=== PATIENT | female | born 1975 | race Caucasian/White ===

== ENCOUNTER 2019-10-16 00:24 | Inpatient (IN) | payer OTHER ==
[2019-10-16] VITALS (13 sets, daily range): BP systolic 105–148; BP diastolic 56–72
[~2019-10-16] VITALS: Ht 157.5 cm; Wt 71.7 kg
--- NOTE | ~2019-10-16 | HC ---
[facility] [place] [address] CONSULTATION Name: NARINDER COX Room #: 248-P ADM IN M.R.#: [id number] Admission: 10/16/19 Attend Phys: Justin Jean MD Discharge: Date of : 73 Report #: [id number] THIS REPORT FOR: cc: [facility] - Clinic physician unknown [facility] - Clinic physician unknown Irwin Jacobs MD ~ CC: [facility] unknown Justin Jean DATE OF SERVICE: 10/16/2019 HISTORY OF PRESENT ILLNESS: A 44-year-old female patient who is unable to provide any history at all. I reviewed all the records. I talked to Dr. Jean and I understand from the record, the patient was having flu-like symptoms, but the says that she was not having any flu-like symptoms before she started this diet. She always drinks a lot of fluid to flush out toxin from her body as per history and with this diet she developed multiple symptoms of nausea, vomiting, diarrhea and had a seizure. She was brought here and she is markedly hyponatremic. How long she has been like this is not clear. She had some fatigue, which is going on for some time. Here, her test was negative and CT scan was mostly unremarkable. REVIEW OF SYSTEMS: Positive for severe hyponatremia. She did get some fentanyl. She also got some Ativan. So this morning, she is pretty drowsy. PAST MEDICAL HISTORY: Negative for seizure. FAMILY HISTORY: Negative for any seizures. SOCIAL HISTORY: She does not drink any alcohol or smoke. PHYSICAL EXAMINATION: Pretty limited. She has no verbal output. She does not follow any commands. She does not let me do the fundus examination. She moves all 4 extremities. She does not appear to be in respiratory distress. Cardiac examinations appear unremarkable. LABORATORY DATA: White count was 16.6, but now it has increased to 21.2. Sodium is still 114, calcium is 7.3. I ordered magnesium, which is pending. IMPRESSION: This patient's symptoms are most likely related to hyponatremia as well as multiple other electrolyte abnormalities including hypocalcemia. That is being addressed by Renal and admitting doctor. Her nutritional status is poor. She also has been repeatedly vomiting. That can lead to impaired thiamine utilizations. If it does not interfere with her fluid management, I asked the nurses to check with renal. We can give her a banana bag that we will give her some nutrition and additional dose of thiamine, which sometime is [facility] [address] [place] [address] CONSULTATION Name: NARINDER COX Room #: 248-P ADM IN [facility]#: [id number] Admission: 10/16/19 Attend Phys: Justin Jean MD Discharge: Date of : 73 Report #: [id number] required in the patient who has repeated nausea, vomiting. I do not think we need to do a spinal tap at this moment because she will have some edema from the hyponatremia and it has increased chances of herniation and the chances of [employer] infection is somewhat low. Her white count has increased after she has been here. Initial white count may be secondary to seizure, but increasing white count is worrisome and the possibility of further infection including aspiration pneumonia need to be considered in this patient. I talked to Dr. Jean and we will put an ID consult to evaluate that. We will see their opinion. About 50 minutes of time was spent taking care of this patient today and that included reviewing her record, her imaging studies and her EEG and talking to her as the patient is unable to talk and other health pet care associate. By: [id number] Irwin Jacobs MD /nt
--- NOTE | ~2019-10-16 | EEG ---
[facility] [place] [address] ELECTROENCEPHALOGRAM Name: NARINDER COX Room #: 248-P ADM IN M.R.#: [id number] Admission: 10/16/19 Attend Phys: Justin Jean MD Discharge: Date of : 73 Report #: [id number] THIS REPORT FOR: //name// CC: FAM unknown Justin Jean DATE OF SERVICE: 10/16/2019 This patient is being evaluated for altered mental status. EEG was done by placing the electrode by standard 10-20 system of electrode placement. Both referential and sequential montages were used for recording. Background activity in this patient's EEG is about 7 Hz and 30 microvolt. Photic stimulation is unremarkable. No active seizure activity was noticed. EEG is intermixed with slowing on both side. IMPRESSION: This is an abnormal EEG because it is disorganized and poorly formed on both side. That is a nonspecific abnormality, which can occur with dementia, encephalopathy, effect of psychotropic medication, etc. Clinical correlation is recommended. By: [id number] Irwin Jacobs MD /nt
[2019-10-16 02:03] LABS: URINE BILIRUBIN NEGATIVE (Negative); URINE BLOOD NEGATIVE (Negative); URINE CLARITY CLEAR; URINE COLOR YELLOW; URINE GLUCOSE-RANDOM* NEGATIVE (Negative); URINE KETONES 1+ (Negative); URINE LEUKOCYTES-REFLEX NEGATIVE (Negative); URINE NITRITE-REFLEX NEGATIVE (Negative); URINE PROTEIN (DIPSTICK) NEGATIVE (Negative); URINE SPECIFIC GRAVITY >= 1.030 (1.005-1.035); URINE UROBILINOGEN 0.2 E.U./dl (0.2-1.0)
[2019-10-16 02:09] LABS: ABSOLUTE NEUTROPHILS 14.4 thou/uL (1.4-8.2); BASOPHILS 0.1 % (0.0-2.0); HEMATOCRIT 37.6 % (37.0-47.0); HEMOGLOBIN 12.7 gm/dL (12.0-15.0); LYMPHOCYTES 8.8 % (24.0-44.0); MCH 28.7 pg (26.0-34.0); MCHC 33.9 g/dL (28.0-37.0); MCV 84.8 fL (80.0-100.0); MONOCYTES 4.3 % (1.0-8.0); PLATELET COUNT 393 thou/uL (150-400); POLYS 86.8 % (36.0-66.0); RBC 4.43 mil/uL (4.20-5.00); RDW 12.7 % (10.5-14.5); WBC 16.6 thou/uL (4.0-11.0)
[2019-10-16 02:18] LABS: ALBUMIN 3.7 g/dL (3.4-5.0); AMP/METHAMP Negative (Negative); BARBITURATES Negative (Negative); BENZODIAZEPINES Negative (Negative); CALCIUM 8.1 mg/dL (8.5-10.1); COCAINE Negative (Negative); CREATININE 0.9 mg/dL (0.6-1.0); DIRECT BILIRUBIN 0.1 mg/dL (<0.1-0.2); METHADONE Negative (Negative); OPIATES Negative (Negative); PCP Negative (Negative); POTASSIUM 3.4 mmol/L (3.5-5.1); TOTAL BILIRUBIN 0.6 mg/dL (0.2-1.0); TOTAL PROTEIN 7.6 g/dL (6.4-8.2)
[2019-10-16] MEDS ORDERED: NORG-EE 0.18-01 EACH PO (04:18)
[2019-10-16 05:18] LABS: CALCIUM 6.9 mg/dL (8.5-10.1); CREATININE 0.7 mg/dL (0.6-1.0)
[2019-10-16 05:38] LABS: FOLIC ACID 16.8 ng/mL (8.6-58.9); TSH 0.976 uIU/mL (0.358-3.740)
[2019-10-16 06:49] LABS: URINE CREATININE-RANDOM* 58.2 mg/dL
[2019-10-16 08:31] LABS: HEMATOCRIT 33.6 % (37.0-47.0); HEMOGLOBIN 11.7 gm/dL (12.0-15.0); MCHC 34.7 g/dL (28.0-37.0); MCV 83.6 fL (80.0-100.0); RBC 4.02 mil/uL (4.20-5.00); RDW 12.8 % (10.5-14.5); WBC 21.2 thou/uL (4.0-11.0)
[2019-10-16 08:38] LABS: CALCIUM 7.3 mg/dL (8.5-10.1); CREATININE 0.6 mg/dL (0.6-1.0); POTASSIUM 3.8 mmol/L (3.5-5.1)
--- NOTE | 2019-10-16 09:12 | EKG ---
[facility] [place] [address] ELECTROCARDIOGRAM REPORT Name: NARINDER COX Room #: 248-P ADM IN M.R.#: [id number] Admission: 10/16/19 Attend Phys: Justin Jean MD Discharge: Date of : 73 Report #: [id number] THIS REPORT FOR: cc: [facility] - Clinic physician unknown [facility] - Clinic physician unknown Adolfo Gallardo MD [facility] ~ THIS REPORT FOR: //name// [facility] ED Test Date: 2019-10-16 Test Time: 03:36:23 Pat Name: NARINDER COX Department: Room: 248 Gender: F Database Dba: RADHA : 1975 Requested By: Linda Boyer Order Number: [id number] MD: Adolfo Gallardo Measurements Intervals [place] Rate: 91 P: 71 NM: 158 QRS: 63 QRSD: 143 T: 54 QT: 354 QTc: 436 Interpretive Statements Sinus rhythm Poor R wave progression No previous ECG available for comparison Electronically Signed On 10-16-2019 9:12:13 CDT by Adolfo Gallardo [email or web address] <ELECTRONICALLY SIGNED> By: Adolfo Gallardo MD, [facility] 10/16/19911 [id number] Adolfo Gallardo MD, [facility] /EPI
--- NOTE | 2019-10-16 11:33 | NUR ---
RISK, BENEFITS, AND ALTERNATIVE TREATMENT DISCUSSED WITH THE PATIENT'S . TEACHING GIVEN RELATED TO POSSIBLE COMPLICATONS SUCH BLEEDING, INFECTION, CLOT, OR VESSEL PERFORATION. INSTRUCTION GIVEN RELATED TO CLABSI PREVENTION WITH LITERATURE PROVIDED. VOICES UNDERSTANDING AND GIVES VERBAL CONSENT. WRITTEN CONSENT OBTAINED. TIME OUT COMPLETED WITH DARIEL RN IN ICU ROOM 248. TRIPLE LUMEN PICC PLACED TO RUE BASILIC VEIN. ONE STICK AND NO COMPLICATIONS. PATIENT TOLERATED WELL. TIP OF PICC VERIFIED IN DISTAL SVC PER CHEST XRAY. DARIEL RN NOTIFIED OKAY TO USE TRIPLE LUMEN RUE PICC.
--- NOTE | 2019-10-16 13:35 | NUR ---
chart review. order for mri today. pt resting unable to visit with her. noted from chart pt spouse reports she is independent. she was doing a body cleanse. abnormal labs. endo, id and neuro consult.
[2019-10-16 15:10] LABS: CALCIUM 7.6 mg/dL (8.5-10.1); CREATININE 0.7 mg/dL (0.6-1.0); POTASSIUM 3.7 mmol/L (3.5-5.1)
[2019-10-16 16:53] LABS: CALCIUM 7.3 mg/dL (8.5-10.1); CREATININE 0.8 mg/dL (0.6-1.0); POTASSIUM 3.5 mmol/L (3.5-5.1)
--- NOTE | 2019-10-16 19:17 | NUR ---
ADMITTED PT AT 0800 FROM ED TO ICU. PT ASLEEP, OCCASIONALLY RESTLESS, RESPONDS TO PAINFUL STIMULI; VSS - BP 120s/60s, HR 80s, RR 16-20s, 02 SAT 98% ON RM AIR. AT THE BEDSIDE. DR. ALCOCER WITH NEPHROLOGY AT THE BEDSIDE PLAN TO START HYPERTONIC SALINE, AND MONITOR BMPs Q2 HRS. PATIENT TO MRI PER NEUROLOGY AT 1345; TOLERATED MRI FAIRLY.
[2019-10-16 20:40] LABS: CALCIUM 7.5 mg/dL (8.5-10.1); CREATININE 0.7 mg/dL (0.6-1.0); POTASSIUM 3.4 mmol/L (3.5-5.1)
[2019-10-17] VITALS (15 sets, daily range): BP systolic 116–149; BP diastolic 47–68
[2019-10-17 01:06] LABS: GLYCOHEMOGLOBIN (HGB A1C) 5.3 % (4.8-5.6)
[2019-10-17 05:38] LABS: HEMATOCRIT 34.7 % (37.0-47.0); HEMOGLOBIN 12.1 gm/dL (12.0-15.0); MCH 29.4 pg (26.0-34.0); MCHC 35.1 g/dL (28.0-37.0); MCV 83.9 fL (80.0-100.0); RBC 4.13 mil/uL (4.20-5.00); WBC 11.9 thou/uL (4.0-11.0)
[2019-10-17 05:45] LABS: APTT 27.5 Seconds (24.5-32.8); PROTIME 10.7 Seconds (9.3-11.4)
[2019-10-17 06:58] LABS: ALBUMIN 2.9 g/dL (3.4-5.0); CALCIUM 7.5 mg/dL (8.5-10.1); CREATININE 0.7 mg/dL (0.6-1.0); POTASSIUM 3.3 mmol/L (3.5-5.1); TOTAL BILIRUBIN 0.3 mg/dL (0.2-1.0)
--- NOTE | 2019-10-17 10:30 | NUR ---
pt possible having spinal tap today. cont on iv medication. covid pending. when medical stable, dc home with family. will cont following as needed for dc needs.
[2019-10-17 10:56] LABS: CALCIUM 7.5 mg/dL (8.5-10.1); CREATININE 0.6 mg/dL (0.6-1.0); POTASSIUM 3.2 mmol/L (3.5-5.1)
[2019-10-17 13:39] LABS: CALCIUM 7.1 mg/dL (8.5-10.1); CREATININE 0.6 mg/dL (0.6-1.0); POTASSIUM 3.1 mmol/L (3.5-5.1)
--- NOTE | 2019-10-17 13:48 | NUR ---
[facility] MD WILL [facility] ORDERS. REPEAT LAB IN 2 HOURS.
[2019-10-17 16:03] LABS: CSF GLUCOSE 72 mg/dL (40-70); CSF PROTEIN 33 mg/dL (15-45)
[2019-10-17 16:09] LABS: CSF RBC 28 /mm3; VOLUME 4.5 ml
[2019-10-17 16:11] LABS: CSF CLARITY HAZY; CSF COLOR COLORLESS
[2019-10-17 16:14] LABS: CSF WBC 66 /mm3 (0-10)
[2019-10-17 16:33] LABS: CALCIUM 7.2 mg/dL (8.5-10.1); CREATININE 0.5 mg/dL (0.6-1.0); POTASSIUM 3.3 mmol/L (3.5-5.1)
[2019-10-17 17:34] LABS: CSF POLYS 98 %
[2019-10-17 17:35] LABS: CSF LYMPHOCYTES 2 % (40-80)
--- NOTE | 2019-10-17 17:39 | NUR ---
SPOKE WITH DR ROTHMAN, REPORTED LAB. WILL MOVE 1800 LAB TO 1999 OTHERWISE NO OTHER CHANGES. GENERAL UPDATE GIVEN.
--- NOTE | 2019-10-17 20:55 | NUR ---
PT MOVING TOWARDS GOALS. NA STABLE AT 128. ALERT AND ORIENTED. FOLLOWS ALL COMMANDS. VSS.
[2019-10-17 22:06] LABS: HIV ANTIBODY Non Reactive (Non Reactive)
[2019-10-17 23:03] LABS: ALBUMIN 2.6 g/dL (3.4-5.0); CREATININE 0.5 mg/dL (0.6-1.0); PHOSPHORUS 1.2 mg/dL (2.5-4.9); POTASSIUM 3.5 mmol/L (3.5-5.1)
[2019-10-18] VITALS (9 sets, daily range): BP systolic 119–161; BP diastolic 50–87
[2019-10-18 05:54] LABS: ALBUMIN 2.7 g/dL (3.4-5.0); CALCIUM 7.7 mg/dL (8.5-10.1); CREATININE 0.6 mg/dL (0.6-1.0); PHOSPHORUS 1.5 mg/dL (2.5-4.9); POTASSIUM 3.4 mmol/L (3.5-5.1)
--- NOTE | 2019-10-18 07:08 | NUR ---
PT IS ALERT AND ORINETED TO PERSON AND PLACE. HAD TO EXPLAIN PURPOSE OF HOSPITALIZATION. LUNGS ARE CLEAR ON ROOM AIR. PEREZ TO DD WITH YELLOW URINE PRESENT. INFECTIOUS DISEASE SEEN PT THIS AM. NO SEIZURE ACTIVITY NOTED. NO EDEMA NOTED . GENERAL WEAKNESS AND TIRED NOTED WITH PT. WILL CONTINUE TO ASSESS AND MONITOR PER NURSING IN ICU A T THIS TIME.
[2019-10-18 10:42] LABS: ALBUMIN 2.8 g/dL (3.4-5.0); CALCIUM 7.6 mg/dL (8.5-10.1); CREATININE 0.6 mg/dL (0.6-1.0); PHOSPHORUS 1.7 mg/dL (2.5-4.9); POTASSIUM 3.3 mmol/L (3.5-5.1)
[2019-10-18 11:05] LABS: URINE BILIRUBIN NEGATIVE (Negative); URINE BLOOD 3+ (Negative); URINE CLARITY CLEAR; URINE COLOR YELLOW; URINE GLUCOSE-RANDOM* NEGATIVE (Negative); URINE KETONES 1+ (Negative); URINE LEUKOCYTES TRACE (Negative); URINE NITRITE NEGATIVE (Negative); URINE PROTEIN (DIPSTICK) 1+ (Negative); URINE SPECIFIC GRAVITY 1.025 (1.005-1.035); URINE UROBILINOGEN 0.2 E.U./dl (0.2-1.0)
[2019-10-18 11:16] LABS: BACTERIA 1-9 Few /HPF (None Seen); CASTS None Seen /LPF (None Seen); CRYSTALS None Seen /LPF (None Seen); SQUAMOUS 0-3 Few /LPF (0-3); URINE RBC 3-10 Few /HPF (0-2); URINE WBC 6-15 Few /HPF (0-5)
--- NOTE | 2019-10-18 17:18 | NUR ---
ASSUMED CARE APPROX 1300. PT TRANSFERRED TO THIS UNIT FROM ICU. PT ALERT AND ORIENTED X4. DROWSY. ASSESSMENTS CHARTED AND VSS. SR ON TELE MONITOR. DENIES ACUTE PAIN. DENIES CHEST PAIN. PT AMBULATES W/ ASSISTANCE TO BATHROOM. GAIT MILDLY UNSTEADY. LIQUID STOOLS W/ SMALL AMOUNT OF BRBPR. DENIES ABD PAIN/CRAMPING. DOES REPORT PREVIOUS RECTAL BLEEDING WHEN SHE HAD SHIGELLA A FEW YRS AGO. DR. SCHULTZ NOTIFIED. NO NEW ORDERS GIVEN. SLOWLY PROGRESSING TOWARDS PLAN OF CARE GOALS. WILL CONTINUE TO MONITOR.
[2019-10-18 17:30] LABS: CALCIUM 7.6 mg/dL (8.5-10.1); CREATININE 0.7 mg/dL (0.6-1.0); POTASSIUM 3.1 mmol/L (3.5-5.1)
[2019-10-19 04:37] LABS: CALCIUM 7.6 mg/dL (8.5-10.1); CREATININE 0.6 mg/dL (0.6-1.0); POTASSIUM 3.1 mmol/L (3.5-5.1)
[2019-10-19 04:45] VITALS: BP 142/86
--- NOTE | 2019-10-19 05:57 | NUR ---
PATIENT ASSESSED AND IS ALERT X 2-3. IS LETHARGIC AT TIMES.IS SLOW THINKING AT TIMES, UP TO BATHROOM WITH ASSIST . IS VERY SLOW IN WALKING. DROWSY AT TIMES ALSO. NO FRECTAL BLLEDING THIS SHIFT. LUMBAR PUNTURE BANDAIDE DRY AND INTACT. ON ROOM AIR. PP 2/2. PEREZ HAS CLEAR YELLOW URINE NOTED. RIGHT UPPER ARM PICC NOTYEDHD A BM TODAY. HAVING DIARRHEA NOTED X 3 TIMES THIS SHIF5T IV SITE HEALTHY. LUNGS CTA. NO EDEMA NOTED. CONT PLAN OF CARE. NO SEIZURES NOTED.
[2019-10-19 07:01] LABS: HSV PCR SOURCE CSF
[2019-10-19 07:20] VITALS: BP 136/70
--- NOTE | 2019-10-19 10:16 | NUR ---
VAT ROUNDING- THIS PATIENT CONTINUES ON MULTIPLE IV MEDS AND PICC ACCESS IS STILL NECESSARY AT THIS TIME
[2019-10-19 11:40] VITALS: BP 135/76
[2019-10-19 15:50] VITALS: BP 143/83
--- NOTE | 2019-10-19 18:45 | NUR ---
AT BEDSIDE REPORTS SHE IS MUCH MORE MENTALLY ALERT AND STRONGER, TOO. SR PER TELE. MULTIPLE ANTIBIOTICS, ANTIVIRALS. AFEBRILE. K+ 3.1 REPLACED. NA 137. VOIDING WITHOUT DIFFICULTY SINCE PEREZ DISCONTINUED. WILL CONTINUE TO FOLLOW CLOSELY.
--- NOTE | 2019-10-19 18:52 | NUR ---
LAB CALLS TO INFORM THEY DO NOT HAVE ENOUGH CSF TO PERFORM TWO TESTS ORDERED TODAY.
[2019-10-19 20:05] VITALS: BP 150/89
[2019-10-20] VITALS (7 sets, daily range): BP systolic 133–158; BP diastolic 72–96
--- NOTE | 2019-10-20 00:32 | NUR ---
PT IS ALERT AND ORIENTED X4. UP AMBUATLES TO BATHROOM WITH MINIMAL ASSISTANCE. LUNGS ARE CLEAR ON ROOM AIR. ABDOMEN IS SOFT BOWEL SOUNDS ACTIVE X4. DENIES ANY PAIN ISSUES. RESTING REPORTS SHE IS TIRED. NO EDMA NOTED 2/2 PULSES NOTED. VITALS ARE STABLE. WILL CONTINUE TO MONITOR AND ASSESS PER NURSING.
--- NOTE | 2019-10-20 02:07 | NUR ---
PT IS ALERT AND ORIENTED X4. LUNGS ARE CLEAR. UP TO BATHROOM WITH MINIMAL ASSSTANCE REQUIRED. NO SEIZURE ACTIVITY NOTED. PT RESTING. REPORTS SHE IS TIRED. ABDOMEN IS SOFT BOWEL SOUNDS ACTIVE X4. DENIES ANT PAIN ISSUES AT THIS TIME. VITALS ARE STABLE. CALL LIGHT WITHIN REACH IF NEEDS ASISTANCE PER NURISNG. NO EDEMA NOTED.
[2019-10-20 04:55] LABS: ALBUMIN 2.7 g/dL (3.4-5.0); CREATININE 0.6 mg/dL (0.6-1.0); POTASSIUM 3.1 mmol/L (3.5-5.1)
[2019-10-20 11:13] LABS: ABSOLUTE NEUTROPHILS 6.5 thou/uL (1.4-8.2); BASOPHILS 0.6 % (0.0-2.0); EOSINOPHILS 0.8 % (0.0-3.0); HEMATOCRIT 33.3 % (37.0-47.0); HEMOGLOBIN 11.5 gm/dL (12.0-15.0); LYMPHOCYTES 12.8 % (24.0-44.0); MCH 29.6 pg (26.0-34.0); MCHC 34.5 g/dL (28.0-37.0); MCV 85.8 fL (80.0-100.0); MONOCYTES 5.9 % (1.0-8.0); PLATELET COUNT 283 thou/uL (150-400); POLYS 79.9 % (36.0-66.0); RBC 3.88 mil/uL (4.20-5.00); RDW 13.1 % (10.5-14.5); WBC 8.1 thou/uL (4.0-11.0)
[2019-10-20 11:23] LABS: CALCIUM 8.2 mg/dL (8.5-10.1); CREATININE 0.7 mg/dL (0.6-1.0)
--- NOTE | 2019-10-20 16:27 | NUR ---
met with patient and spouse at bedside. Spouse reports they have [employer] insurance which is pool of money distributed. Spouse reports they need very itemized bills. He reports they will pay but need to work out payment arrangements. They do not have prescriptions assistance in plan. Patient to [facility] tomorrow. sp with [facility] regarding [employer] application to be mailed. Also left message in business office. Patient will need prescritption assistance at [place]. She worked with therapy today.
--- NOTE | 2019-10-20 18:52 | NUR ---
PT CARE ASSUMED AT 0700. ASSESSMENTS CHARTED. MEDICATION CHARTED. RT 3L PICC. PT UP TO TOILET. AWAITING SPINAL TAP LABS. PT DENIES PAIN. VSS.
--- NOTE | 2019-10-21 02:58 | NUR ---
RECIEVED CARE OF THIS PATIENT AT 1915. PATIENT ALERT AND ORIENTED X4. DEMIES PAIN. UP TO BATHROOM BY SELF. NOT A FALL RISK. IV PATENT WITH FLUIDS INFUSING IN TL PICC IN UPPER R ARM. NO SEIZURE ACTIVITY NOTED. SLEPT OFF AND ON DURING NIGHT.
[2019-10-21 05:09] VITALS: BP 151/100
[2019-10-21 06:29] LABS: ALBUMIN 2.9 g/dL (3.4-5.0); CALCIUM 8.4 mg/dL (8.5-10.1); CREATININE 0.6 mg/dL (0.6-1.0); MAGNESIUM 1.9 mg/dL (1.8-2.4); PHOSPHORUS 3.8 mg/dL (2.5-4.9); POTASSIUM 3.2 mmol/L (3.5-5.1)
[2019-10-21 07:45] VITALS: BP 147/86
[2019-10-21 11:50] VITALS: BP 147/86
[2019-10-21 13:40] VITALS: BP 147/86
--- NOTE | 2019-10-21 13:55 | NUR ---
plan dc home no prescriptions needed.
--- NOTE | 2019-10-21 14:17 | NUR ---
PT CARE ASSUMED AT 0700. ASSESSMENTS CHARTED. MEDICATION CHARTED. PT TO BE DISCHARGED TO HOME. RT 3 LUMEN PICC D/C'D, PRESSURE HELD 5 MINUTES. TELEMETRY D/C'D.
[2019-10-21 17:06] LABS: HSV 1 DNA Negative (Negative); HSV 2 DNA Negative (Negative)
== END 2019-10-21 14:28 | disposition home or self-care (01) | DRG 640 ==
LOC: ER 00:24 → ICU 02:57 → EROBS 02:57 → ICU 07:56 → 2N 10-18 13:30
PROVIDERS: Emergency Medicine; Hospitalist; Internal Medicine Nephrology; Nurse Practitioner Family; Psychiatry & Neurology Neuromuscular Medicine; Specialist; ADMIT Hospitalist; ATTEND Hospitalist
DX: E87.1 Hypo-osmolality and hyponatremia (principal); G03.9 Meningitis, unspecified; M62.82 Rhabdomyolysis; D72.829 Elevated white blood cell count, unspecified; E87.2 Acidosis; R63.1 Polydipsia; K52.9 Noninfective gastroenteritis and colitis, unspecified; E87.6 Hypokalemia; D75.1 Secondary polycythemia; Z20.828 Contact with and (suspected) exposure to other viral communicable diseases; Z79.899 Other long term (current) drug therapy
CPT/HCPCS: 10078; 10081; 27000